=== PATIENT | male | born 1950 | race Caucasian/White ===

== ENCOUNTER 2016-09-16 09:55 | Emergency (ER) | payer MEDICARE, OTHER ==
[~2016-09-16] VITALS: Wt 81.0 kg
[~2016-09-16 09:55] MED LIST: CHOL2000 PO; FURO-109 PO; GLUC100015 PO; HYDR2TAB15 PO; IBUP-1542 PO; LACT20SO2 PO; RANI150C11 PO; RIFA550T4 PO; SPIR100T31 PO; VITA1TAB58 PO
[2016-09-16] MEDS ORDERED: ZINC57OI TOP (10:51)
[2016-09-16] MEDS ORDERED: DOXY100T20 PO (10:51)
--- NOTE | 2016-09-16 10:53 | ERD ---
ER Documentation Chief Complaint Date/Time DATE: 09/16/16 TIME: 10:52 Chief Complaint DYSURIA WITH MILD ABD PAIN X 1 WEEK; DENIES N/V/V HPI 66-year-old man complaining of dysuria and meatal redness 1 week. He denies fevers or chills, no weight loss, no blood per rectum or melena, no chest pain or shortness of breath. Patient does have multiple medical conditions including alcoholic cirrhosis and hypertension. He denies recent sexual activity and denies penile discharge. ROS All systems reviewed and are negative except as per history of present illness. Medications Home Meds Active Scripts Zinc Oxide* (Zinc Oxide*) 40%-57GM Oint, 1 APPLIC TOP BID, #1 TUB Prov:INDY SALOMON MD 09/16/16 Doxycycline Hyclate* (Doxycycline Hyclate*) 100 Mg Tablet.dr, 100 MG PO BID, # 10 TAB Prov:INDY SALOMON MD 09/16/16 Hydromorphone Hcl* (Dilaudid*) 2 Mg Tablet, 2 MG PO Q6H Y for PAIN, #7 TAB Prov:LAURA FAIRBANKS MD 05/28/16 Ibuprofen* (Motrin*) 600 Mg Tab, 600 MG PO Q6H Y for PAIN AND OR ELEVATED TEMP, #30 TAB Prov:LAURA FAIRBANKS MD 05/28/16 Reported Medications Vitamin B Complex (B Complex) 1 Tab.sa Tablet.sa, 1 TAB.SA PO 06/24/15 Spironolactone* (Spironolactone*) 100 Mg Tablet, 200 MG PO BID, TAB 06/24/15 Ranitidine Hcl (Ranitidine Hcl) 150 Mg Capsule, 150 MG PO HS, CAP 06/24/15 Cholecalciferol* (Vitamin D3*) 2,000 Unit Cap, 2000 UNIT PO DAILY, CAP 05/23/15 Glucosamine Sulfate 2KCL (GLUCOSAMINE) 1,000 Mg Tablet, 500 MG PO DAILY, TAB 05/23/15 Rifaximin* (Xifaxan*) 550 Mg Tablet, 550 MG PO BID, TAB 01/21/15 Lactulose* (Lactulose*) 20 Gm/30 Ml Solution, 20 GM PO Q6H Y for NEEDED, ML 01/21/15 Furosemide* (Lasix*) 40 Mg Tablet, 40 MG PO DAILY, TAB 09/23/14 Allergies Allergies: Coded Allergies: No Known Allergy (Unverified , 05/28/16) PMhx/Soc Cholelithiasis, alcoholic cirrhosis, hypertension, history of CHF, gastritis History of Surgery: Yes (EGD) Anesthesia Reaction: No Hx Neurological Disorder: No Hx Respiratory Disorders: No Hx Cardiac Disorders: Yes (HTN) Hx Psychiatric Problems: No Hx Miscellaneous Medical Probl: Yes (HIGH CHOLESTEROL, liver chirrosis) Hx Alcohol Use: Yes (QUIT 1 YR, 1 beer 2 days ago) Hx Substance Use: No Hx Tobacco Use: No (25 YRS QUIT) Smoking Status: Former smoker FmHx Family History: diabetes Physical Exam Vitals Vital Signs Date Time Temp Pulse Resp B/P Pulse Ox O2 Delivery O2 Flow Rate FiO2 09/16/16 11:24 98.4 82 18 134/61 100 Room Air 09/16/16 10:01 98.0 75 18 133/61 100 Physical Exam GENERAL: Well-developed, well-nourished, well-hydrated, in no apparent distress , looks nontoxic in appearance HEENT: Moist mucous membranes, pink conjunctiva, no cervical spine tenderness or step-off deformities, no goiter, no jaundice or icterus, extraocular movements intact without pain. No submandibular induration, and no pharyngeal erythema NEURO: Alert and oriented 3, cranial nerves II through XII intact bilaterally, pupils equal round reactive to light, no focal deficits or facial asymmetry, sensation intact distally Strength 5/5 in upper and lower extremities bilaterally CARDIAC: Regular rate and rhythm, no murmurs rubs or gallops LUNGS: Clear bilaterally no wheezing crackles or stridor ABDOMEN: Soft nontender, no guarding, no rigidity, no rebound, no psoas sign no obturator sign. Normoactive bowel sounds SKIN: Warm and dry to touch, positive mild erythema circumferentially around the base of the meatus without active meatal discharge, no erythema to the foreskin EXTREMITIES: No clubbing cyanosis or edema, calves are bilaterally symmetrical, no Homans sign, no popliteal cord sign. Distal pulses equal and bilateral PSYCH: Normal affect without agitation or irritability Results 24 hrs Current Medications Medications (Trade) Dose Ordered Sig/Mona Route PRN Reason Start Time Stop Time Status Last Admin Dose Admin Ceftriaxone Sodium (Rocephin) 1 gm ONCE ONCE IM 09/16/16 11:00 09/16/16 11:01 DC 09/16/16 11:16 Lidocaine (Xylocaine 1% (Mdv) 20 ml) 20 ml ONCE ONCE SC 09/16/16 11:00 09/16/16 11:01 DC 09/16/16 11:18 Fluconazole (Diflucan) 200 mg ONCE ONCE PO 09/16/16 11:00 09/16/16 11:01 DC 09/16/16 11:21 Procedures/MDM I visualized the patient's genitalia he has mild erythema to the base of the meatus without skin induration and no penile discharge. He was prescribed ketoconazole ointment which he states he has been using for about 5 days without relief of symptoms. I recommended he continue ketoconazole ointment for up to 3 week and I also administered ceftriaxone 1 g intramuscular injection. UTI is also current concern although patient could not or did not want to provide urine for urinalysis. Differential diagnoses considered, included but not limited to penile cancer, sexually transmitted urethritis, aortic dissection, abdominal aortic aneurysm, sepsis, stroke, meningitis, encephalitis, pneumonia, appendicitis, cholecystitis , bowel obstruction, pyelonephritis, nephrolithiasis, cystitis, as well as metabolic, hematologic, and electrolyte abnormalities. As well as abscess, cellulitis, fractures, and dislocations. Patient feels much better at this time, and vital signs are normal, symptoms have improved. I did give strict instructions to return to the ED if symptoms continue or worsen, patient will otherwise follow-up with primary care physician. Patient understood instructions and agreed to plan. Departure Diagnosis: Primary Impression: Shirin Condition: Good Patient Instructions: INDY Hernandez MD Sep 16, 2016 10:53
[2016-09-16] MEDS ORDERED: FLUCONAZOLE 200 MG TAB PO ONE (11:00)
[2016-09-16] MEDS ORDERED: CEFTRIAXONE 1 GM INJ IM ONE (11:00)
[2016-09-16] MEDS ORDERED: LIDOCAINE 1% (MDV) 20 ML INJ SC ONE (11:00)
[2016-09-16 11:24] VITALS: BP 134/61; PULSE 82; RESP 18; TEMP 98.4
== END 2016-09-16 11:24 | disposition home or self-care (01) ==
LOC: E/R 09:55
DX: N48.1 Balanitis (principal); I10 Essential (primary) hypertension; Z87.891 Personal history of nicotine dependence
CPT/HCPCS: 36415; 96372; 99284; J0696

== ENCOUNTER 2016-11-01 10:15 | Emergency (ER) | payer MEDICARE, OTHER ==
[~2016-11-01] VITALS: Wt 98.0 kg
[~2016-11-01 10:15] MED LIST changes: +DOXY100T20 PO; +ZINC57OI TOP
[2016-11-01 10:59] LABS: URINE BLOOD (Dip) POC Trace-intact (NEGATIVE)
[2016-11-01] MEDS ORDERED: CLOT30CR24 TOP (11:19)
[2016-11-01] MEDS ORDERED: HC1C30 TOP (11:19)
--- NOTE | 2016-11-01 11:21 | ERD ---
ER Documentation Chief Complaint Date/Time DATE: 11/01/16 TIME: 11:20 Chief Complaint GENITAL INFECTION ANTIBOTICS NOT HELPING HPI This 66-year-old male presents with some irritation of his penis intermittently for the last few weeks. He is using Desitin without relief. He denies any penile discharge, dysuria, fevers, bleeding. ROS All systems reviewed and are negative except as per history of present illness. Medications Home Meds Active Scripts Hydrocortisone* Topical (Hydrocortisone* Topical) 1%-28.35 Gm Cream..g., 1 APPLIC TOP Q6 Y for ITCHING for 7 Days, #1 TUB Prov:AMAN HENRIQUEZ MD 11/01/16 Clotrimazole* (Clotrimazole* AF) 1% - 30 Gm Cream.gm., 1 APPLIC TOP BID for 14 Days, TUB Prov:AMAN HENRIQUEZ MD 11/01/16 Zinc Oxide* (Zinc Oxide*) 40%-57GM Oint, 1 APPLIC TOP BID, #1 TUB Prov:INDY SALOMON MD 09/16/16 Doxycycline Hyclate* (Doxycycline Hyclate*) 100 Mg Tablet.dr, 100 MG PO BID, # 10 TAB Prov:INDY SALOMON MD 09/16/16 Hydromorphone Hcl* (Dilaudid*) 2 Mg Tablet, 2 MG PO Q6H Y for PAIN, #7 TAB Prov:LAURA FAIRBANKS MD 05/28/16 Ibuprofen* (Motrin*) 600 Mg Tab, 600 MG PO Q6H Y for PAIN AND OR ELEVATED TEMP, #30 TAB Prov:LAURA FAIRBANKS MD 05/28/16 Reported Medications Vitamin B Complex (B Complex) 1 Tab.sa Tablet.sa, 1 TAB.SA PO 06/24/15 Spironolactone* (Spironolactone*) 100 Mg Tablet, 200 MG PO BID, TAB 06/24/15 Ranitidine Hcl (Ranitidine Hcl) 150 Mg Capsule, 150 MG PO HS, CAP 06/24/15 Cholecalciferol* (Vitamin D3*) 2,000 Unit Cap, 2000 UNIT PO DAILY, CAP 05/23/15 Glucosamine Sulfate 2KCL (GLUCOSAMINE) 1,000 Mg Tablet, 500 MG PO DAILY, TAB 05/23/15 Rifaximin* (Xifaxan*) 550 Mg Tablet, 550 MG PO BID, TAB 01/21/15 Lactulose* (Lactulose*) 20 Gm/30 Ml Solution, 20 GM PO Q6H Y for NEEDED, ML 01/21/15 Furosemide* (Lasix*) 40 Mg Tablet, 40 MG PO DAILY, TAB 09/23/14 Allergies Allergies: Coded Allergies: No Known Allergy (Unverified , 05/28/16) PMhx/Soc History of Surgery: Yes (EGD) Anesthesia Reaction: No Hx Neurological Disorder: No Hx Respiratory Disorders: No Hx Cardiac Disorders: Yes (HTN) Hx Psychiatric Problems: No Hx Miscellaneous Medical Probl: Yes (HIGH CHOLESTEROL, liver chirrosis) Hx Alcohol Use: Yes (QUIT 1 YR, 1 beer 2 days ago) Hx Substance Use: No Hx Tobacco Use: No (25 YRS QUIT) Smoking Status: Former smoker Physical Exam Vitals Vital Signs Date Time Temp Pulse Resp B/P Pulse Ox O2 Delivery O2 Flow Rate FiO2 11/01/16 10:17 98.0 78 18 194/71 100 Physical Exam Const: [] Alert, [id number] per Head: Atraumatic Eyes: Normal Conjunctiva ENT: Normal External Ears, Nose and Mouth. Neck: Full range of motion..~ No meningismus. Resp: Clear to auscultation bilaterally Cardio: Regular rate and rhythm, no murmurs Abd: Soft, non tender, non distended. Normal bowel sounds Skin: No petechiae or rashes. There is some irritation around the glans penis and shaft without vesicles, streaking, induration, swelling. There is no penile discharge. Testicles are nontender descended bilaterally. There is no appreciable masses. Back: No midline or flank tenderness Ext: No cyanosis, or edema Neur: Awake and alert Psych: Normal Mood and Affect Results 24 hrs Laboratory Tests Test 11/01/16 11:01 Bedside Urine pH (LAB) 5.5 Bedside Urine Protein (LAB) Negative Bedside Urine Glucose (UA) Negative Bedside Urine Ketones (LAB) Negative Bedside Urine Blood Trace-intact Bedside Urine Nitrite (LAB) Negative Bedside Urine Leukocyte Esterase (L Negative Procedures/MDM Urine shows trace hemoglobin but no leukocytes, nitrites or glucose. Patient has signs and symptoms of mild balanitis without evidence of paraphimosis or phimosis or cellulitis or additional concerning signs or symptoms. Patient was treated with Lotrimin for 2 weeks and a short course of hydrocortisone cream. Patient is advised to follow-up with primary doctor or return to the ER for new or worsening symptoms. The patient was stable with no new complaints during the ER course. Clinically, there is no current evidence to suggest meningitis, sepsis, acute abdomen, pneumonia, acute coronary syndrome, pulmonary embolism, or any other emergent condition appearing to require further evaluation or hospitalization. The patient should certainly return for any new or worsening symptoms per the aftercare instructions. They should otherwise follow-up with her primary care doctor for reevaluation this week. Departure Diagnosis: Primary Impression: Balanitis Condition: Stable Patient Instructions: Balanitis Additional Instructions: ORINA NORMAL. Cheque otro vez con rader doctor primario en el proximo pappas or regresa para mas o nueva simptomas. AMAN HENRIQUEZ MD November 01, 2016 11:21
== END 2016-11-01 11:48 | disposition home or self-care (01) ==
LOC: FTE 10:15
DX: N48.1 Balanitis (principal); I10 Essential (primary) hypertension; Z87.891 Personal history of nicotine dependence
CPT/HCPCS: 81003; 99283

== ENCOUNTER 2016-12-13 07:33 | Emergency (ER) | payer MEDICARE, OTHER ==
[~2016-12-13] VITALS: Ht 172.7 cm; Wt 92.5 kg
[~2016-12-13 07:33] MED LIST changes: +CLOT30CR24 TOP; +HC1C30 TOP
[2016-12-13 07:35] VITALS: Ht 172.7 cm; Wt 92.5 kg
[2016-12-13] MEDS ORDERED: CEPH-443 PO (07:48)
--- NOTE | 2016-12-13 07:57 | ERD ---
ER Documentation Chief Complaint Date/Time DATE: 12/13/16 TIME: 07:53 Chief Complaint c/o swelling on penis and painful urination HPI Patient is a 66-year-old male with a history of balanitis but no diabetes who presents with "infection in the penis". He said that for 1 month he has had burning pain with urination as well as at the meatus. He tried ketoconazole cream, Desitin, and hydrocortisone cream. Upon review of the old medical records this is the patient's 12th visit to the ER since 2014 and he has had visits for this issue in the past. He does not currently have a primary doctor. ROS All systems reviewed and are negative except as per history of present illness. Medications Home Meds Active Scripts Cephalexin* (Keflex*) 500 Mg Capsule, 500 MG PO QID for 7 Days, CAP Prov:LAURA FAIRBANKS MD 12/13/16 Hydrocortisone* Topical (Hydrocortisone* Topical) 1%-28.35 Gm Cream..g., 1 APPLIC TOP Q6 Y for ITCHING for 7 Days, #1 TUB Prov:AMAN HENRIQUEZ MD 11/01/16 Clotrimazole* (Clotrimazole* AF) 1% - 30 Gm Cream.gm., 1 APPLIC TOP BID for 14 Days, TUB Prov:AMAN HENRIQUEZ MD 11/01/16 Zinc Oxide* (Zinc Oxide*) 40%-57GM Oint, 1 APPLIC TOP BID, #1 TUB Prov:INDY SALOMON MD 09/16/16 Doxycycline Hyclate* (Doxycycline Hyclate*) 100 Mg Tablet.dr, 100 MG PO BID, # 10 TAB Prov:INDY SALOMON MD 09/16/16 Hydromorphone Hcl* (Dilaudid*) 2 Mg Tablet, 2 MG PO Q6H Y for PAIN, #7 TAB Prov:LAURA FAIRBANKS MD 05/28/16 Ibuprofen* (Motrin*) 600 Mg Tab, 600 MG PO Q6H Y for PAIN AND OR ELEVATED TEMP, #30 TAB Prov:LAURA FAIRBANKS MD 05/28/16 Reported Medications Vitamin B Complex (B Complex) 1 Tab.sa Tablet.sa, 1 TAB.SA PO 06/24/15 Spironolactone* (Spironolactone*) 100 Mg Tablet, 200 MG PO BID, TAB 06/24/15 Ranitidine Hcl (Ranitidine Hcl) 150 Mg Capsule, 150 MG PO HS, CAP 06/24/15 Cholecalciferol* (Vitamin D3*) 2,000 Unit Cap, 2000 UNIT PO DAILY, CAP 05/23/15 Glucosamine Sulfate 2KCL (GLUCOSAMINE) 1,000 Mg Tablet, 500 MG PO DAILY, TAB 05/23/15 Rifaximin* (Xifaxan*) 550 Mg Tablet, 550 MG PO BID, TAB 01/21/15 Lactulose* (Lactulose*) 20 Gm/30 Ml Solution, 20 GM PO Q6H Y for NEEDED, ML 01/21/15 Furosemide* (Lasix*) 40 Mg Tablet, 40 MG PO DAILY, TAB 09/23/14 Allergies Allergies: Coded Allergies: No Known Allergy (Unverified , 05/28/16) PMhx/Soc History of Surgery: Yes (EGD) Anesthesia Reaction: No Hx Neurological Disorder: No Hx Respiratory Disorders: No Hx Cardiac Disorders: Yes (HTN) Hx Psychiatric Problems: No Hx Miscellaneous Medical Probl: Yes (HIGH CHOLESTEROL, liver chirrosis) Hx Alcohol Use: Yes (QUIT 1 YR, 1 beer 2 days ago) Hx Substance Use: No Hx Tobacco Use: No (25 YRS QUIT) FmHx Family History: diabetes Physical Exam Vitals Vital Signs Date Time Temp Pulse Resp B/P Pulse Ox O2 Delivery O2 Flow Rate FiO2 12/13/16 07:35 97.9 66 18 135/66 98 Physical Exam Const: No acute distress Head: Atraumatic Eyes: Normal Conjunctiva ENT: Normal External Ears, Nose and Mouth. Neck: Full range of motion..~ No meningismus. Resp: Clear to auscultation bilaterally Cardio: Regular rate and rhythm, no murmurs Abd: Soft, non tender, non distended. Normal bowel sounds Skin: No petechiae or rashes Back: No midline or flank tenderness Ext: No cyanosis, or edema Neur: Awake and alert : No testicular pain or swelling, no discharge from the meatus, no obvious signs of erythema or mass Procedures/MDM Patient is a 66-year-old male who presents with penile pain at the meatus. I will treat the patient with Keflex for a presumed cystitis and possible localized cellulitis however there is no signs of Geovanna's gangrene or other serious infection at this time. He has already tried ketoconazole cream as well as clotrimazole cream and hydrocortisone cream. I believe outpatient management is appropriate. I told him the most important thing is that he obtains a primary doctor so that he can get follow-up. He can return for any worsening symptoms. Departure Diagnosis: Primary Impression: Balanitis Additional Impression: Cystitis Condition: Fair Patient Instructions: Cystitis, Balanitis [facility] Usted se li hecho un examen mdico de control que le indica que no est en mikki condicin que requiera tratamiento urgente en el Departamento de Emergencia. Un estudio ms profundo y el tratamiento de rader condicin pueden esperar sin ningn riesgo hasta que usted sea atendida/o en el consultorio de rader mdico o mikki cl jie. Es responsabilidad suya arreglar mikki jun para el seguimiento del laci. MANEJO DE CONDICIONES NO URGENTES EN EL FUTURO 1) Si usted tiene un mdico de atencin primaria: Usted debera llamar a rader mdico de atencin primaria antes de venir al departamento de emergencia. Despus de las horas de consultorio, rader doctor o rader asociado/a est disponible por telfono. El mdico o enfermero de satnam en el servicio telefnico puede asesorarle por brayan medio para atender el problema, o laci contrario se puede programar mikki jun. 2) Si usted no tiene un mdico de atencin primaria: Llame al mdico o clnica de referencia que aparece abajo aleksandra las horas de consultorio para hacer mikki jun para que le vean. CLINICAS: [facility] [phone] [id number] [facility] [id number] [facility] [phone] [address] [facility] [phone] [place] [id number] [phone] [facility]. [phone] [address] Additional Instructions: Llame al doctor nombrado abajo (Referral Sources) MAANA y messi mikki JUN PARA DENTRO DE MIKKI SEMANA. Dgale a la secretaria que nosotros le instruimos hacer esta jun.Avise o llame si rader condicin se empeora antes de la jun. LAURA FAIRBANKS MD Dec 13, 2016 07:56
== END 2016-12-13 08:10 | disposition home or self-care (01) ==
LOC: FTE 07:33
DX: N48.1 Balanitis (principal); N30.90 Cystitis, unspecified without hematuria; I10 Essential (primary) hypertension; Z87.891 Personal history of nicotine dependence
CPT/HCPCS: 99283

== ENCOUNTER 2017-07-11 05:46 | Inpatient (IN) | END 2017-07-12 14:55 | disposition home or self-care (01) | DRG 394 ==

== ENCOUNTER 2017-07-14 06:55 | Outpatient (CLI) | END 2017-07-14 15:57 | disposition home or self-care (01) ==

== ENCOUNTER → 2018-09-19 | Outpatient (CLI) | payer MEDICARE, OTHER ==
[~2018-09-19] MED LIST changes: +B CO1TAB14 PO; -CHOL2000 PO; +CHOL5000 PO; -CLOT30CR24 TOP; -DOXY100T20 PO; -FURO-109 PO; +FURO20TA3 PO; -GLUC100015 PO; -HC1C30 TOP; -HYDR2TAB15 PO; -IBUP-1542 PO; +METO10TA3 PO; +OMEP20CA16 PO; +PANT40TA4 PO; -RANI150C11 PO; -SPIR100T31 PO; +SPIR100T4 PO; -VITA1TAB58 PO; -ZINC57OI TOP
== END | disposition home or self-care (01) ==
LOC: U/S 09:09
PROVIDERS: ATTEND Internal Medicine Hepatology
DX: K74.60 Unspecified cirrhosis of liver (principal)
CPT/HCPCS: 76700